=== PATIENT | female | born 1960 | race Caucasian/White ===

== ENCOUNTER → 2022-07-02 14:06 | Outpatient (BNVA) | payer BC, SELFPAY | PROVIDERS: PCP Nurse Practitioner; Visit Provider Internal Medicine | DX: R76.8 Other specified abnormal immunological findings in serum (principal); M79.643 Pain in unspecified hand; L40.9 Psoriasis, unspecified; M79.89 Other specified soft tissue disorders | CPT/HCPCS: 36415; 72202; 73120; 80053; 82550; 83516; 85025; 85651; 86140; 86160; 86162; 86200; 86235; 86255; 86376; 86431; 86480; 86704; 86803; 87340 ==